=== PATIENT | male | born 1995 | race Hispanic/Latino ===

== ENCOUNTER 2024-08-14 14:27 | Emergency (ER) | payer SELFPAY ==
[~2024-08-14] VITALS: Ht 165.1 cm; Wt 56.4 kg
[2024-08-14] MEDS ORDERED: IBUPROFEN800 MG PO (14:48)
[2024-08-14] MEDS: ACETAMINOPHEN 325 MG TAB PO ONE (15:02)
[2024-08-14] MEDS: IBUPROFEN 400 MG TAB PO STA (15:02)
[2024-08-14 15:51] VITALS: PULSE 75; RESP 18; TEMP 98.2; O2SAT 99
== END 2024-08-14 16:00 | disposition home or self-care (01) ==
LOC: FSED 14:31
DX: S93.492A Sprain of other ligament of left ankle, initial encounter (principal); X50.1XXA Overexertion from prolonged static or awkward postures, initial encounter; Y93.01 Activity, walking, marching and hiking; Y92.89 Other specified places as the place of occurrence of the external cause; F17.210 Nicotine dependence, cigarettes, uncomplicated
CPT/HCPCS: 99284